=== PATIENT | female | born 1995 | race Caucasian/White ===

== ENCOUNTER 2016-06-09 01:20 | Emergency (ER) | payer OTHER ==
[~2016-06-09] VITALS: Ht 162.6 cm; Wt 59.0 kg
[2016-06-09 02:55] LABS: Urine Bilirubin Negative (Negative); Urine Color Yellow (Yellow); Urine Glucose Normal (Normal); Urine Ketone Negative (Negative); Urine Mucus FEW (None Seen); Urine Nitrite Negative (Negative); Urine RBC 4 /hpf (0 - 4); Urine Squamous Epithelial Cell FEW /hpf (<5); Urine Urobilinogen Normal (Negative); Urine pH 5.5 (5.0-8.0)
[2016-06-09 02:56] LABS: Urine Blood 2+ /uL (Negative)
[2016-06-09 04:31] VITALS: BP 122/69
[2016-06-09] MEDS ORDERED: TETANUS-DIPTH-ACEL PERTUSSIS 0.5ML SYRG IM ONE (05:15)
[2016-06-09] MEDS ORDERED: HYDROcodone-ACET 7.5/325MG TAB PO ONE (05:15)
== END 2016-06-09 05:50 | disposition home or self-care (01) ==
LOC: ER 01:26
DX: S02.2XXA Fracture of nasal bones, initial encounter for closed fracture (principal); Z23 Encounter for immunization; Y08.89XA Assault by other specified means, initial encounter; Y99.8 Other external cause status; Y93.89 Activity, other specified; Y92.89 Other specified places as the place of occurrence of the external cause
CPT/HCPCS: 70486; 81001; 81025; 90471; 90715

== ENCOUNTER 2022-06-21 03:57 | Emergency (ER) | payer MEDICAID, OTHER ==
[~2022-06-21] VITALS: Ht 165.1 cm; Wt 56.8 kg
[2022-06-21 06:30] VITALS: BP 108/80
[2022-06-21] MEDS ORDERED: HYDROcodone-ACET 10/325MG TAB PO ONE (06:45)
[2022-06-21] MEDS ORDERED: ACET-1158 PO (07:40)
[2022-06-21] MEDS ORDERED: IBUP800T26 PO (07:40)
== END 2022-06-21 09:39 | disposition home or self-care (01) ==
LOC: ER 03:57
DX: S16.1XXA Strain of muscle, fascia and tendon at neck level, initial encounter (principal); S00.83XA Contusion of other part of head, initial encounter; Y04.2XXA Assault by strike against or bumped into by another person, initial encounter; Y93.89 Activity, other specified; Y92.89 Other specified places as the place of occurrence of the external cause; Y99.8 Other external cause status
CPT/HCPCS: 70450; 72125

== ENCOUNTER 2022-08-18 07:03 | Inpatient (IN) | payer MEDICAID ==
[2022-08-18] VITALS (20 sets, daily range): BP systolic 97–130; BP diastolic 42–74
[~2022-08-18] VITALS: Ht 162.6 cm; Wt 70.2 kg
[~2022-08-18 07:03] MED LIST: ACET500T58 PO; IBUP-1455 PO
[2022-08-18 07:50] LABS: Basophils # (auto) 0.1 10 ^3/uL (0-0.2); Eosinophils # (auto) 0.1 10 ^3/uL (0-0.8); Hematocrit 25.5 % (36.0-46.0); Hemoglobin 8.3 g/dL (12.2-16.2); Mean Corpuscular Volume 72.9 fL (80.0-100.0); Monocytes # (auto) 1.8 10 ^3/uL (0-1.3); Red Cell Distribution Width 16.2 % (11.8-14.3)
[2022-08-18 07:52] LABS: Basophils % (auto) 0.3 % (0.0-2.0); Eosinophils % (auto) 0.3 % (0.0-7.0); Lymphocytes # (auto) 2.2 10 ^3/uL (0.4-5.4); Lymphocytes % (auto) 10.2 % (10.0-50.0); Mean Corpuscular Hemoglobin 23.8 pg (28.0-32.0); Mean Corpuscular Hgb Conc. 32.7 g/dL (32.0-36.0); Monocytes % (auto) 8.6 % (0.0-12.0); Neutrophils # (auto) 16.9 10 ^3/uL (1.6-8.6); Neutrophils % (auto) 80.6 % (37.0-80.0); Nucleated Red Blood Cells % 0.1 %
[2022-08-18] MEDS ORDERED: LACT. RINGERS/OXYTOCIN 20UNITS 1,000 ML IV ONE ×2 (08:00→13:15)
[2022-08-18] MEDS ORDERED: TRANEXAMIC ACID 1,000 MG in SODIUM CHL 0.9% 100 ML IV ONE (08:00)
[2022-08-18 08:06] LABS: Albumin 2.8 g/dL (3.4-5.0); Calcium 8.1 mg/dL (8.5-10.1)
[2022-08-18 08:07] LABS: INR 0.94 (0.9-1.15); Partial Thromboplastin Time 20.8 sec (24.6-33.4)
[2022-08-18 08:10] LABS: BUN/Creatinine Ratio 12.9 (10.0-20.0); Bilirubin, Total 0.1 mg/dL (0.2-1.0)
[2022-08-18] MEDS ORDERED: LIDOCAINE 1% HCL (LOCAL ANESTH.) INJ 20ML MDV ONE (09:42)
[2022-08-18] MEDS ORDERED: IBUP-1456 PO (11:26)
[2022-08-18] MEDS ORDERED: FER325T PO (11:26)
[2022-08-18] MEDS ORDERED: CEPH500T PO (11:26)
[2022-08-18] MEDS ORDERED: BACITRACIN TOP OINT 1 UD PKG TOP ONE (11:30)
[2022-08-18] MEDS ORDERED: fentaNYL CITRATE 100 MCG/2 ML VL ONE (11:34)
[2022-08-18] MEDS ORDERED: MIDAZOLAM HCL 2MG/2ML 2ml VIAL (1mg/ml) ONE ×2 (11:34→16:58)
[2022-08-18] MEDS ORDERED: MEPERIDINE HCL (25 MG/ML) 1ML VIAL ONE (11:34)
[2022-08-18] MEDS ORDERED: PROPOFOL 10 MG/ML 20 ML IV ONE (11:34)
[2022-08-18] MEDS ORDERED: SODIUM CHLORIDE LOCK 10 ML ONE (11:34)
[2022-08-18] MEDS ORDERED: ONDANSETRON HCL 4 MG/2 ML VIAL ONE (11:34)
[2022-08-18] MEDS ORDERED: DexAMETHasone SOD PHOS 10MG/1ML VIAL INJ ONE (11:34)
[2022-08-18] MEDS ORDERED: OXYTOCIN 10UNIT/ML 1ML VIAL ONE (11:45)
[2022-08-18] MEDS ORDERED: HYDROmorphone HCL 2 MG/ML VL/or syr IV PRN (11:45)
[2022-08-18] MEDS ORDERED: MORPHINE SULFATE INJ 2 MG/ml SYRG IV PRN ×2 (11:45→13:00)
[2022-08-18] MEDS ORDERED: METOCLOPRAMIDE HCL 5MG/ml INJ 2ml VIAL IV PRN (11:45)
[2022-08-18] MEDS ORDERED: ceFAZolin 1GM/50ML 100 ML IV ONE (11:47)
[2022-08-18] MEDS ORDERED: CARBOPROST TROMETHAMINE 250 MCG/1ML VIAL IM ONE ×2 (12:09→12:27)
[2022-08-18] MEDS ORDERED: METHYLERGONOVINE MALEATE 0.2 MG/ML AMP IM ONE (12:11)
[2022-08-18] MEDS ORDERED: NITROGLYCERIN 0.4 MG SL TAB SL PRN (13:00)
[2022-08-18] MEDS ORDERED: HYDROmorphone HCL 2 MG/ML VL/or syr ONE (13:07)
[2022-08-18] MEDS: HYDROmorphone HCL 2 MG/ML VL/or syr IV PRN ×2 (13:09→13:21)
[2022-08-18] MEDS ORDERED: MORPHINE SULFATE INJ 2 MG/ml SYRG IV ONE (13:15)
[2022-08-18 13:33] LABS: Urine Bacteria FEW /hpf (None Seen); Urine Blood Negative /uL (Negative); Urine Specific Gravity 1.019 (1.001-1.035); Urine WBC 4 /hpf (0 - 5)
[2022-08-18] MEDS: ceFAZolin 1GM/50ML 50 ML IV SCH ×2 (14:00→22:24)
[2022-08-18] MEDS: ONDANSETRON HCL 4 MG/2 ML VIAL IV SCH ×2 (14:00→18:00)
[2022-08-18] MEDS ORDERED: CALCIUM CHLOR(10%) 100MG/ML 10ML SYRINGE IV ONE (14:50)
[2022-08-18] MEDS ORDERED: CALCIUM CHL 100MG/ML 1,000 MG in D5W 5% 100 ML IV ONE (15:15)
[2022-08-18 15:24] LABS: Alcohol, Urine < 3.0 mg/dL (0-10); Amphetamine Screen, Urine POSITIVE (NEGATIVE); Barbiturate Scree,Urine NEGATIVE (NEGATIVE); Cannabinoid Screen, Urine POSITIVE (NEGATIVE)
[2022-08-18 15:32] LABS: Benzodiazephine Screen, Urine NEGATIVE (NEGATIVE); Cocaine Screen, Urine NEGATIVE (NEGATIVE); Opiate Scree,Urine NEGATIVE (NEGATIVE); Phencyclidine Screen, Urine NEGATIVE (NEGATIVE)
[2022-08-18 16:04] LABS: Basophils # (auto) 0 10 ^3/uL (0-0.2); Basophils % (auto) 0.1 % (0.0-2.0); Eosinophils # (auto) 0 10 ^3/uL (0-0.8); Eosinophils % (auto) 0.1 % (0.0-7.0); Hemoglobin 8.5 g/dL (12.2-16.2); Lymphocytes # (auto) 1.1 10 ^3/uL (0.4-5.4)
[2022-08-18 16:07] LABS: Mean Corpuscular Hemoglobin 26.3 pg (28.0-32.0); Mean Corpuscular Hgb Conc. 32.5 g/dL (32.0-36.0); Monocytes # (auto) 0.4 10 ^3/uL (0-1.3); Neutrophils # (auto) 19.5 10 ^3/uL (1.6-8.6); Neutrophils % (auto) 92.8 % (37.0-80.0); Red Blood Cells 3.21 10^6/uL (4.0-5.20); Red Cell Distribution Width 18.4 % (11.8-14.3)
[2022-08-18] MEDS: LACTATED RINGER'S 1,000 ML IV SCH (16:29)
[2022-08-18] MEDS: NOREPINEPHRINE 8 MG/250ML KIT 250 ML IV SCH (16:35)
[2022-08-18 17:51] LABS: Calcium 7.9 mg/dL (8.5-10.1); Potassium 4.2 mmol/L (3.5-5.1)
[2022-08-18 17:58] LABS: Albumin 2.3 g/dL (3.4-5.0); BUN/Creatinine Ratio 14.6 (10.0-20.0); Bilirubin, Total 0.5 mg/dL (0.2-1.0); Total Protein 5.1 g/dL (6.4-8.2)
[2022-08-18] MEDS: ACETAMINOPHEN 325 MG TAB PO SCH (18:00)
[2022-08-18 19:28] LABS: Basophils # (auto) 0 10 ^3/uL (0-0.2); Basophils % (auto) 0.1 % (0.0-2.0); Eosinophils # (auto) 0 10 ^3/uL (0-0.8); Hemoglobin 8.3 g/dL (12.2-16.2); Mean Corpuscular Hemoglobin 26.3 pg (28.0-32.0); Mean Corpuscular Hgb Conc. 33.4 g/dL (32.0-36.0); Monocytes # (auto) 0.4 10 ^3/uL (0-1.3); White Blood Cell 23.5 10^3/uL (4.4-10.8)
[2022-08-18 19:30] LABS: Hematocrit 24.9 % (36.0-46.0); Lymphocytes % (auto) 4.1 % (10.0-50.0); Mean Corpuscular Volume 78.8 fL (80.0-100.0); Monocytes % (auto) 1.7 % (0.0-12.0); Neutrophils # (auto) 22.1 10 ^3/uL (1.6-8.6); Neutrophils % (auto) 94.1 % (37.0-80.0); Nucleated Red Blood Cells % 0.1 %; Red Blood Cells 3.15 10^6/uL (4.0-5.20)
[2022-08-19] VITALS (99 sets, daily range): BP systolic 90–120; BP diastolic 35–70
[2022-08-19] MEDS: ONDANSETRON HCL 4 MG/2 ML VIAL IV SCH ×5 (02:00→17:31)
[2022-08-19] MEDS: LACTATED RINGER'S 1,000 ML IV SCH ×3 (02:15→17:05)
[2022-08-19 05:19] LABS: Basophils # (auto) 0 10 ^3/uL (0-0.2); Basophils % (auto) 0.1 % (0.0-2.0); Eosinophils # (auto) 0 10 ^3/uL (0-0.8); Hematocrit 19.7 % (36.0-46.0); Lymphocytes # (auto) 2.2 10 ^3/uL (0.4-5.4); Neutrophils # (auto) 13.4 10 ^3/uL (1.6-8.6)
[2022-08-19 05:21] LABS: Potassium 3.8 mmol/L (3.5-5.1)
[2022-08-19 05:24] LABS: Eosinophils % (auto) 0.1 % (0.0-7.0); Lymphocytes % (auto) 12.7 % (10.0-50.0); Mean Corpuscular Hemoglobin 26.7 pg (28.0-32.0); Mean Corpuscular Hgb Conc. 33.6 g/dL (32.0-36.0); Mean Corpuscular Volume 79.3 fL (80.0-100.0); Monocytes # (auto) 1.4 10 ^3/uL (0-1.3); Monocytes % (auto) 8.1 % (0.0-12.0); Red Blood Cells 2.49 10^6/uL (4.0-5.20)
[2022-08-19 05:27] LABS: Bilirubin, Total 0.2 mg/dL (0.2-1.0); Calcium 7.2 mg/dL (8.5-10.1); Total Protein 4.5 g/dL (6.4-8.2)
[2022-08-19 06:00] LABS: Hemoglobin 6.6 g/dL (12.2-16.2)
[2022-08-19] MEDS: ACETAMINOPHEN 325 MG TAB PO SCH ×4 (06:00→17:31)
[2022-08-19] MEDS: ceFAZolin 1GM/50ML 50 ML IV SCH ×3 (06:48→22:20)
[2022-08-19] MEDS: NOREPINEPHRINE 8 MG/250ML KIT 250 ML IV SCH (13:51)
[2022-08-20] VITALS (68 sets, daily range): BP systolic 85–126; BP diastolic 44–69
[2022-08-20] MEDS: ONDANSETRON HCL 4 MG/2 ML VIAL IV SCH ×3 (01:11→10:00)
[2022-08-20 04:32] LABS: Basophils # (auto) 0.1 10 ^3/uL (0-0.2); Basophils % (auto) 0.6 % (0.0-2.0); Eosinophils # (auto) 0.1 10 ^3/uL (0-0.8); Eosinophils % (auto) 0.6 % (0.0-7.0); Hematocrit 26.2 % (36.0-46.0); Hemoglobin 9.1 g/dL (12.2-16.2); Lymphocytes # (auto) 2.7 10 ^3/uL (0.4-5.4); Lymphocytes % (auto) 31.9 % (10.0-50.0); Mean Corpuscular Hemoglobin 28.2 pg (28.0-32.0); Mean Corpuscular Hgb Conc. 34.8 g/dL (32.0-36.0); Monocytes # (auto) 0.8 10 ^3/uL (0-1.3); Monocytes % (auto) 9.6 % (0.0-12.0); Neutrophils # (auto) 4.9 10 ^3/uL (1.6-8.6); Neutrophils % (auto) 57.3 % (37.0-80.0); Nucleated Red Blood Cells % 0.3 %; Red Blood Cells 3.23 10^6/uL (4.0-5.20); Red Cell Distribution Width 17.4 % (11.8-14.3); White Blood Cell 8.6 10^3/uL (4.4-10.8)
[2022-08-20] MEDS: ACETAMINOPHEN 325 MG TAB PO SCH ×3 (06:00→12:00)
[2022-08-20] MEDS: ceFAZolin 1GM/50ML 50 ML IV SCH ×3 (06:13→23:02)
[2022-08-20] MEDS: LACTATED RINGER'S 1,000 ML IV SCH ×4 (06:15→23:02)
[2022-08-20] MEDS: NOREPINEPHRINE 8 MG/250ML KIT 250 ML IV SCH (09:45)
[2022-08-20] MEDS: MIDODRINE HCL 10 MG TAB PO SCH ×2 (10:57→22:00)
[2022-08-20] MEDS ORDERED: ACETAMINOPHEN 325 MG TAB PO PRN (16:15)
[2022-08-20] MEDS ORDERED: ONDANSETRON HCL 4 MG/2 ML VIAL IV PRN (16:15)
[2022-08-21] VITALS (12 sets, daily range): BP systolic 85–117; BP diastolic 48–71
[2022-08-21] MEDS: ceFAZolin 1GM/50ML 50 ML IV SCH ×2 (06:46→14:00)
[2022-08-21] MEDS: LACTATED RINGER'S 1,000 ML IV SCH ×2 (08:00→14:40)
[2022-08-21] MEDS: NOREPINEPHRINE 8 MG/250ML KIT 250 ML IV SCH (09:45)
[2022-08-21] MEDS: MIDODRINE HCL 10 MG TAB PO SCH (10:38)
[2022-08-21 11:34] LABS: Basophils # (auto) 0 10 ^3/uL (0-0.2); Basophils % (auto) 0.2 % (0.0-2.0); Eosinophils # (auto) 0 10 ^3/uL (0-0.8); Eosinophils % (auto) 0.3 % (0.0-7.0); Hematocrit 30.4 % (36.0-46.0); Hemoglobin 10.1 g/dL (12.2-16.2); Lymphocytes # (auto) 2.4 10 ^3/uL (0.4-5.4); Lymphocytes % (auto) 26.1 % (10.0-50.0); Mean Corpuscular Hemoglobin 27.6 pg (28.0-32.0); Mean Corpuscular Hgb Conc. 33.2 g/dL (32.0-36.0); Mean Corpuscular Volume 83.1 fL (80.0-100.0); Monocytes # (auto) 0.8 10 ^3/uL (0-1.3); Monocytes % (auto) 8.2 % (0.0-12.0); Neutrophils % (auto) 65.2 % (37.0-80.0); Nucleated Red Blood Cells % 0.1 %; Red Blood Cells 3.66 10^6/uL (4.0-5.20); Red Cell Distribution Width 17.8 % (11.8-14.3); White Blood Cell 9.2 10^3/uL (4.4-10.8)
== END 2022-08-21 13:56 | disposition home or self-care (01) | DRG 543 ==
LOC: ER 07:03 → TELE 13:01 → ICU CENTRL 17:32 → DOU IN ICU 08-20 17:36
PROVIDERS: ADMIT Obstetrics & Gynecology; ATTEND Obstetrics & Gynecology
PROC: 30233N1 Transfusion of Nonautologous Red Blood Cells into Peripheral Vein, Percutaneous Approach (ICD-10-PCS; 2022-08-18)
PROC: 30233K1 Transfusion of Nonautologous Frozen Plasma into Peripheral Vein, Percutaneous Approach (ICD-10-PCS; 2022-08-18)
PROC: 0HQ1XZZ Repair Face Skin, External Approach (ICD-10-PCS; 2022-08-18)
PROC: 10D17ZZ Extraction of Products of Conception, Retained, Via Natural or Artificial Opening (ICD-10-PCS; principal; 2022-08-18 11:51)
DX: O03.1 Delayed or excessive hemorrhage following incomplete spontaneous abortion (principal); D62 Acute posthemorrhagic anemia; F12.90 Cannabis use, unspecified, uncomplicated; J45.909 Unspecified asthma, uncomplicated; S01.81XA Laceration without foreign body of other part of head, initial encounter; F19.90 Other psychoactive substance use, unspecified, uncomplicated; W18.39XA Other fall on same level, initial encounter; Y93.89 Activity, other specified; Y92.89 Other specified places as the place of occurrence of the external cause; Y99.8 Other external cause status
CPT/HCPCS: 12011; 36415; 71045; 76801; 80053; 80307; 81001; 81025; 84702; 85025; 85610; 85730; 86850; 86900; 86901; 86920; 87081; 93306; 99291; G0378; J0690; J1100; J2001; J2250; J2405; J2590; J2704; J7060

== ENCOUNTER 2024-02-02 04:58 | Emergency (ER) | payer MEDICAID, OTHER ==
[~2024-02-02] VITALS: Ht 165.1 cm; Wt 65.7 kg
[~2024-02-02 04:58] MED LIST changes: +CEPH500T PO; +FER325T PO; +IBUP-1456 PO
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
[2024-02-02 09:02] VITALS: BP 133/90; PULSE 71; RESP 14; TEMP 98.2; O2SAT 95
== END 2024-02-02 09:15 | disposition home or self-care (01) ==
LOC: ER 04:58
DX: S00.11XA Contusion of right eyelid and periocular area, initial encounter (principal); J45.909 Unspecified asthma, uncomplicated; Z98.890 Other specified postprocedural states; Z79.899 Other long term (current) drug therapy; Z91.040 Latex allergy status; Y04.2XXA Assault by strike against or bumped into by another person, initial encounter; Y93.89 Activity, other specified; Y92.89 Other specified places as the place of occurrence of the external cause; Y99.8 Other external cause status
CPT/HCPCS: 70450; 70486